=== PATIENT | male | born 1975 | race Caucasian/White ===

== ENCOUNTER 2018-04-19 17:21 | Emergency (ER) | payer SELFPAY ==
[~2018-04-19] VITALS: Ht 188 cm; Wt 95.5 kg
[2018-04-19 17:33] VITALS: Ht 188 cm; Wt 95.5 kg
[2018-04-19] MEDS ORDERED: BACTRIM DS TABL1 TAB PO (19:24)
[2018-04-19] MEDS ORDERED: KEFLEX500 MG PO (19:24)
[2018-04-19 20:17] VITALS: BP 133/98
== END 2018-04-19 20:18 | disposition home or self-care (01) ==
LOC: D.ER 17:21
DX: T63.301A Toxic effect of unspecified spider venom, accidental (unintentional), initial encounter (principal); Y92.89 Other specified places as the place of occurrence of the external cause; L03.115 Cellulitis of right lower limb; F17.200 Nicotine dependence, unspecified, uncomplicated